=== PATIENT | female | born 1985 | race Caucasian/White ===

== ENCOUNTER 2024-04-17 15:16 | Emergency (ER) | payer BC, SELFPAY ==
[2024-04-17 15:24] VITALS: BP 146/97; PULSE 89; RESP 18; TEMP 36.7; O2SAT 100; BMI 30.3
--- NOTE | 2024-04-17 15:27 | ED_ITS ---
HPI - Wound/Laceration General Chief Complaint: Wound/Laceration Stated Complaint: possibly needs stitches Time Seen by Provider: 04/17/24 18:38 Source: patient, RN notes reviewed and old records reviewed Mode of arrival: ambulatory Limitations: no limitations History of Present Illness HPI narrative: 39 old female presents for evaluation of a laceration to her right thumb. Patient reports that she was cleaning dishes She states that a wine glass broke and cut the back of her right thumb She reports some numbness to the area She is able to flex and extend the thumb without any difficulty Bleeding is controlled She is unsure of her last tetanus shot Her pain is 03/11 Related Data Allergies Allergy/AdvReac Type Severity Reaction Status Date / Time No Known Allergies Allergy Verified 04/17/24 15:26 Review of Systems Constitutional: Constitutional: Denies body ache(s), Denies chills and Denies fever(s) Musculoskeletal: Musculoskeletal: Denies limited range of motion Integumentary/Breasts: Skin/Breast: Reports wounds PMFSH Social History Social History Advance Directives: No Advance Directives Information Provided: Yes Do you have a plan to hurt others: No Plan Physical Exam Vital Signs: Vital Signs: Last Vital Signs Temp 98.0 F 04/17/24 15:24 Pulse 89 04/17/24 15:24 Resp 18 04/17/24 15:24 BP 146/97 H 04/17/24 15:24 Pulse Ox 100 04/17/24 15:24 O2 Del Method Room Air 04/17/24 15:24 BMI result Body Mass Index 30.3 Const: General: healthy appearing, comfortable, no acute distress, alert and awake Nutritional Appearance: well nourished Orientation/consciousness: patient oriented x3 HEENT: Head: Yes normocephalic and Yes atraumatic Eyes: Eyelids: Yes eyelids normal Conjunctivae: conjunctivae normal Sclerae: sclerae normal Corneas: corneas normal Pupils: Equal, round and reactive pupils present EOM: EOMs intact bilaterally Neck: Neck: Yes full ROM Skin: Other: 2 cm linear, full-thickness laceration t o the dorsal surface of the right thumb just distal to the MCP joint. General skin exam: elasticity normal Neuro: General: patient oriented x3 Cranial nerves: Yes Equal, round and reactive pupils present and Yes Bilaterally intact EOM present Cognition (Neuro): normal cognition Extrem: Other: Full range of motion with flexion, extension, opposition of the right thumb Course Course Course Narrative: This is an RME done by BILLY Ortiz: Additional HPI, ROS, PE not included below will be deferred to primary provider. 39 year old female presents w/ lac to right hand between 1st and second webspace . Got it from glass from a broken wine glass. Tetanus no longer utd per patient Appearance: Alert.? Oriented X3.? No acute cardiopulmonary distress distress.? Head: Normocephalic, atraumatic, no step-offs or deformities Neck: Normal inspection.? Neck supple.? CVS: Pulses normal.? Respiratory: No respiratory distress.? Abdomen: Soft and nontender.? Skin: ? Normal skin color. + lac to r hand between 1-2 digits covered at this time. Extremities: 5/5 strength to bilateral upper and lower extremities Neuro: Oriented X 3.? No motor deficit.? No sensory deficit. Medications Administered Discontinued Medications Generic Name Dose Route Start Last Admin Trade Name Freq PRN Reason Stop Dose Admin Diphtheria/Tetanus/Acell Pertussis 0.5 ml 04/17/24 15:27 04/17/24 16:59 Diphth,Pertus(Acell),Tet Adult 0.5 Ml Syringe IM 04/17/24 15:28 0.5 ml .ONCE ONE Administration Lidocaine/Epinephrine 10 ml 04/17/24 18:42 04/17/24 18:51 Lidocaine Hcl 1%/Epi 1:100,000 10 Ml Vial INFILTRATI 04/17/24 18:43 10 ml ONCE ONE Administration Medical Decision Making Medical Decision Making [facility] Narrative: Patient has a small laceration to the right thumb. There is no evidence of tendon involvement, vascular involvement or nerve vomiting, she does reports some numbness but gross sensation is intact to the distal thumb. See procedure note, tetanus was updated Differential Diagnosis Differential Diagnoses: The differential diagnosis associated with the presentation includes Laceration Skin tear Puncture wound Abrasion Procedures Laceration Laceration 1: Site: hand Side (If applicable): right (Thumb) Size (cm): 2 Description: linear Depth: simple, single layer Local Anesthetic: lidocaine 1% and with epi Amount of anesthesia used (mL): 2 Pre-repair: wound explored, irrigated extensively and deep structures intact Skin layer closed with: nylon Size (cm): 4-0 Number of sutures: 3 Discharge Plan Discharge Clinical Impression: Laceration of right thumb Patient Disposition: Home, Self-Care Instructions: Finger Laceration (ED) Additional Instructions: Your tetanus was updated today. You had 3 sutures placed today. These can be removed in 10 days Keep the area clean and dry Print Language: Tamazight
[2024-04-17] MEDS: Diphth,Pertus(ACell),Tet Adult 0.5 ML SYRINGE IM (16:59)
[2024-04-17] MEDS: Lidocaine HCl 1%/Epi 1:100,000 10 ML VIAL INFILTRATI (18:51)
[2024-04-17 19:30] VITALS: BP 141/89; PULSE 84; RESP 16; TEMP 36.8; O2SAT 98
== END 2024-04-17 19:34 | disposition home or self-care (01) ==
PROVIDERS: Emergency Provider Internal Medicine; PCP Family Medicine
DX: S61.011A Laceration without foreign body of right thumb without damage to nail, initial encounter (principal); W25.XXXA Contact with sharp glass, initial encounter; Y93.9 Activity, unspecified; Y92.9 Unspecified place or not applicable; Y99.9 Unspecified external cause status; Z23 Encounter for immunization
CPT/HCPCS: 12001; 90471; 90715; 99282; 99284